=== PATIENT | male | born 1990 | race Caucasian/White ===

== ENCOUNTER 2016-09-27 09:50 | Emergency (ER) | payer BC | END 2016-09-27 12:00 | disposition home or self-care (01) | LOC: ER1 09:50 | DX: H66.92 Otitis media, unspecified, left ear (principal); J06.9 Acute upper respiratory infection, unspecified; Z88.0 Allergy status to penicillin; F17.200 Nicotine dependence, unspecified, uncomplicated | CPT/HCPCS: 71020; 87081; 87880; 99283 ==

== ENCOUNTER 2021-10-19 10:39 | Emergency (ER) | payer OTHER ==
[~2021-10-19 10:39] MED LIST: PERCOCET 7.5-31 EACH PO
[2021-10-19 11:58] LABS: HEMOGLOBIN 17.7 gm/dl (14.0-17.5); RED BLOOD COUNT 5.63 M/UL (4.20-5.50)
[2021-10-19 13:10] LABS: BUN/CREATININE RATIO 14 (0-10)
[2021-10-19] MEDS ORDERED: IBUPROFEN600 MG PO (15:01)
== END 2021-10-19 15:07 | disposition home or self-care (01) ==
LOC: ER1 10:39
PROVIDERS: Nurse Practitioner
DX: M54.50 Low back pain, unspecified (principal); F17.210 Nicotine dependence, cigarettes, uncomplicated; Z88.0 Allergy status to penicillin
CPT/HCPCS: 71045; 72131; 80053; 81001; 85025; 85652; 86140; 96374; 96375; 99284; J1885; J2360